=== PATIENT | female | born 1960 ===

== ENCOUNTER 2018-11-16 08:48 | Outpatient (CLI) | payer OTHER | END 2018-11-16 08:49 | disposition home or self-care (01) | LOC: C.LAB 08:48 | DX: R73.09 Other abnormal glucose (principal); R31.29 Other microscopic hematuria; E78.00 Pure hypercholesterolemia, unspecified; Z12.11 Encounter for screening for malignant neoplasm of colon; Z18.9 Retained foreign body fragments, unspecified material ==

== ENCOUNTER 2018-11-19 10:08 | Outpatient (CLI) | payer OTHER | END 2018-11-19 10:09 | disposition home or self-care (01) | LOC: C.LAB 10:08 | DX: R73.09 Other abnormal glucose (principal); R31.29 Other microscopic hematuria; E78.00 Pure hypercholesterolemia, unspecified; Z12.11 Encounter for screening for malignant neoplasm of colon ==

== ENCOUNTER 2018-11-24 11:26 | Outpatient (CLI) | payer OTHER | END 2018-11-24 11:27 | disposition home or self-care (01) | LOC: C.MAMMO 11:26 | DX: Z12.31 Encounter for screening mammogram for malignant neoplasm of breast (principal) ==

== ENCOUNTER 2018-12-02 14:16 | Emergency (ER) | payer OTHER ==
[2018-12-02 14:16] VITALS: BMI 29.0
--- NOTE | 2018-12-02 15:36 | RAD ---
PROCEDURE: Radiographs of the Right Shoulder HISTORY: right shoulder pain COMPARISON: None available FINDINGS: BONES: No acute displaced fracture. The distal clavicle and underlying ribs appear intact. JOINTS: No acute dislocation. Acromioclavicular arthropathy. SOFT TISSUES: Soft tissues appear unremarkable. No evidence of radiopaque foreign body. IMPRESSION: No acute displaced fracture or dislocation evident. If symptoms persist or if there is continued clinical concern, x-ray follow-up in 7-10 days should be considered.
--- NOTE | 2018-12-02 15:40 | RAD ---
PROCEDURE: Three views, right hand Radiographs. HISTORY: right hand swelling after fall COMPARISON: None available. FINDINGS: BONES: No acute displaced fracture. JOINTS: No dislocation. SOFT TISSUES: Soft tissue swelling. No evidence of radiopaque foreign body. OTHER FINDINGS: None. IMPRESSION: Soft tissue swelling. No acute displaced fracture, dislocation, or significant joint effusion identified. If symptoms persist, or if there is continued clinical concern, x-ray follow-up in 7-10 days should be considered.
--- NOTE | 2018-12-02 15:41 | RAD ---
PROCEDURE: Three views, radiographs of the right elbow. HISTORY: right elbow pain after fall COMPARISON: No prior. FINDINGS: BONES: No acute displaced fracture. JOINTS: No dislocation. SOFT TISSUES: Unremarkable. No evidence of radiopaque foreign body. JOINT EFFUSION: No significant joint effusion. OTHER FINDINGS: None IMPRESSION: No acute displaced fracture, dislocation, or significant joint effusion identified. If symptoms persist, or if there is continued clinical concern, x-ray follow-up in 7-10 days should be considered.
--- NOTE | 2018-12-02 16:06 | C.PDOC ---
History Of Present Illness 58 y/o female presents to the ER complaining of right shoulder and hand pain s/p fall 2 days ago. Patient states that she felt dizzy and she fell on the street 2 days ago. Currently, patient denies having head injury, LOC, headache, dizziness CP,SOB, and palpitations. - HPI Time Seen by Provider: 12/02/18 14:38 Chief Complaint (Nursing): Trauma History Per: Patient History/Exam Limitations: no limitations Onset/Duration Of Symptoms: Days Severity: Moderate Past Medical History Reviewed: Historical Data, Nursing Documentation, Vital Signs Vital Signs: Last Vital Signs Temp 97.8 F 12/02/18 14:22 Pulse 62 12/02/18 14:22 Resp 18 12/02/18 14:22 BP 167/81 H 12/02/18 14:22 Pulse Ox 99 12/02/18 14:22 - Medical History PMH: Asthma Denies: Chronic Kidney Disease Surgical History: Appendectomy Family History: States: No Known Family Hx - Social History Hx Tobacco Use: No Hx Alcohol Use: No Hx Substance Use: No - Immunization History Hx Tetanus Toxoid Vaccination: No Hx Influenza Vaccination: No Hx Pneumococcal Vaccination: No Review Of Systems Except As Marked, All Systems Reviewed And Found Negative. Cardiovascular: Negative for: Chest Pain Respiratory: Negative for: Shortness of Breath Musculoskeletal: Positive for: Shoulder Pain (right shoulder pain), Hand Pain (right hand pain) Neurological: Negative for: Weakness, Numbness, Headache, Dizziness Physical Exam - Physical Exam Appears: Other (mild pain) Skin: Normal Color, Warm, Dry, Other (abrasion to right knee) Head: Atraumatic, Normacephalic Eye(s): bilateral: Normal Inspection Nose: Normal Oral Mucosa: Moist Neck: No Midline Cervical Tenderness, Supple Chest: Symmetrical Cardiovascular: Rhythm Regular Respiratory: Normal Breath Sounds, No Rales, No Rhonchi, No Wheezing Gastrointestinal/Abdominal: Normal Exam, Soft, No Tenderness, No Guarding, No Rebound Extremity: Normal ROM, Tenderness (tenderness to right shoulder and right hand), Capillary Refill (< 2 seconds), No Deformity (right shoulder,right hand), Swelling (mild swelling to right hand), Other (no tenderness and no swelling to right knee) Pulses: Right Brachial: Normal, Right Radial: Normal Neurological/Psych: Oriented x3, Normal Speech, Normal Motor, Normal Sensation ED Course And Treatment O2 Sat by Pulse Oximetry: 99 (RA) Pulse Ox Interpretation: Normal - Other Rad X-Ray-Right Shoulder X-Ray: Viewed By Me, Read By Radiologist Interpretation: PROCEDURE: Radiographs of the Right Shoulder. HISTORY: right shoulder pain. COMPARISON: None available. FINDINGS: BONES: No acute displaced fracture. The distal clavicle and underlying ribs appear intact. JOINTS: No acute dislocation. Acromioclavicular arthropathy. SOFT TISSUES: Soft tissues appear unremarkable. No evidence of radiopaque foreign body. IMPRESSION: No acute displaced fracture or dislocation evident. If symptoms persist or if there is continued clinical concern, x-ray follow-up in 7-10 days should be considered. X-Ray-Right Elbow X-Ray: Viewed By Me, Read By Radiologist Interpretation: PROCEDURE: Three views, radiographs of the right elbow. HISTORY: right elbow pain after fall. COMPARISON: No prior. FINDINGS: BONES: No acute displaced fracture. JOINTS: No dislocation. SOFT TISSUES: Unremarkable. No evidence of radiopaque foreign body. JOINT EFFUSION: No significant joint effusion. OTHER FINDINGS: None. IMPRESSION: No acute displaced fracture, dislocation, or significant joint effusion identified. If symptoms persist, or if there is continued clinical concern, x-ray follow-up in 7-10 days should be considered. X-Ray-Right Hand X-Ray: Viewed By Me, Read By Radiologist Interpretation: PROCEDURE: Three views, right hand Radiographs. HISTORY: right hand swelling after fall. COMPARISON: None available. FINDINGS: BONES: No acute displaced fracture. JOINTS: No dislocation. SOFT TISSUES: Soft tissue swelling. No evidence of radiopaque foreign body. OTHER FINDINGS: None. IMPRESSION: Soft tissue swelling. No acute displaced fracture, dislocation, or significant joint effusion identified. If symptoms persist, or if there is continued clinical concern, x-ray follow-up in 7-10 days should be considered. Progress Note: X-Ray-Right Shoulder,X-Ray-Right Elbow, and X-Ray-Right Hand ordered and reviewed. Patient treated with Tylenol PO.Arm sling applied by central sterilization technician. Patient has been discharged and instructed to follow up with orthopedics in 1 week. Disposition Counseled Patient/Family Regarding: Studies Performed, Diagnosis, Need For Followup, Rx Given - Disposition Referrals: Buster Laura MD [Staff Provider] - Disposition: HOME/ ROUTINE Disposition Time: 16:05 Condition: STABLE Additional Instructions: FOLLOW UP WITH ORTHOPEDICS WITHIN 1 WEEK USE PAIN MEDICATION NEEDED RETURN TO EMERGENCY ROOM IF YOUR SYMPTOMS BECOME WORSE SEGUIR CON ORTOPEDIA EN SLOANE SEMANA UTILICE MEDICAMENTOS PARA EL DOLOR TEODORO SE NECESITE VUELVA A LA VINNY DE EMERGENCIA SI JAZMÍN SNTOMAS SE HACEN PE[place] Prescriptions: Naproxen 375 mg PO BID PRN #20 tablet PRN Reason: pain Instructions: Shoulder Sprain (DC), Hand Pain (DC) Forms: Dr Lal [employer] (Estonian) Print Language: CAMEROONIAN - POA Present On Arrival: Falls Or Trauma - Clinical Impression Clinical Impression: Sprain of hand, right, Sprain of right shoulder - Scribe Statement The provider has reviewed the documentation as recorded by the Scribe Annette Pena Provider Attestation: All medical record entries made by the Scribe were at my direction and personally dictated by me. I have reviewed the chart and agree that the record accurately reflects my personal performance of the history, physical exam, medical decision making, and the department course for this patient. I have also personally directed, reviewed, and agree with the discharge instructions and disposition.
[2018-12-02 17:05] VITALS: BP 166/87; PULSE 59; RESP 19; TEMP 98
[2018-12-02 18:38] VITALS: O2SAT 99
== END 2018-12-02 17:05 | disposition home or self-care (01) ==
LOC: C.ER 14:16
DX: S43.401A Unspecified sprain of right shoulder joint, initial encounter (principal); S63.91XA Sprain of unspecified part of right wrist and hand, initial encounter; W19.XXXA Unspecified fall, initial encounter; Y92.410 Unspecified street and highway as the place of occurrence of the external cause

== ENCOUNTER → 2018-12-28 | Outpatient (CLI) | payer OTHER | LOC: C.USIC 11:40 | DX: R31.9 Hematuria, unspecified (principal) ==